=== PATIENT | female | born 1950 | race Caucasian/White ===

== ENCOUNTER 2020-01-21 07:37 | Outpatient (CLI) | payer MEDICARE, SELFPAY ==
--- NOTE | ~2020-01-21 | CT_ITS ---
EXAMINATION: CT lung screening DATE: 01/21/2020 08:53 INDICATION: Personal history of tobacco dependence, current smoker with 41 pack year history TECHNIQUE: Computed tomography (CT) of the chest was performed without intravenous contrast. The dose -length product (DLP) was 97.46 mGy-cm. 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 COMPARISON: 09/12/2018 FINDINGS: There are multiple stable scattered pulmonary nodules, the largest of which measures 7 mm i n the right upper lobe. No new pulmonary nodule is identified. There is mild emphysema. No pathologic ally enlarged thoracic lymph nodes are identified. The heart size is normal. There is no pleural effu dolores or pneumothorax. A calcified nodule of the right lower lobe is consistent with old granulomatous disease. There is calcified coronary artery atherosclerosis. Punctate calcifications in an otherwise normal spleen likely represent healed granulomatous disease. Severe thoracic spondylosis is noted. IMPRESSION: 1. Lung-RADS category 2: Benign appearance or behavior. Continue annual screening with noncontrast lo w-dose chest CT in 12 months. Reviewed, dictated and finalized at location A. IMPRESSION: 1. Lung-RADS category 2: Benign appearance or behavior. Continue annual screeni ng with noncontrast low-dose chest CT in 12 months.
== END 2020-01-21 07:38 | disposition home or self-care (01) ==
PROVIDERS: PCP Family Medicine; Visit Provider Physician Assistant
DX: Z12.2 Encounter for screening for malignant neoplasm of respiratory organs (principal); Z87.891 Personal history of nicotine dependence
CPT/HCPCS: G0297

== ENCOUNTER → 2020-11-17 11:44 | Outpatient (CLI) | payer MEDICARE, SELFPAY ==
--- NOTE | ~2020-11-17 | CT_ITS ---
EXAMINATION: CT lung screening DATE: 11/17/2020 12:13 INDICATION: Personal history of tobacco dependence, current smoker with 75 pack year history TECHNIQUE: Computed tomography (CT) of the chest was performed without intravenous contrast. The dose -length product (DLP) was 93.56 mGy-cm. 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 COMPARISON: 01/21/2020 FINDINGS: There is mild emphysema. Again seen are multiple stable scattered pulmonary nodules, the la rgest of which measures 7 mm in the right upper lobe. No new pulmonary nodule is identified. There is no pleural effusion or pneumothorax. The lungs are free of focal airspace opacities. No pathological ly enlarged thoracic lymph nodes are identified. The heart size is normal. Calcified coronary artery atherosclerosis is noted. There is severe thoracic spondylosis. IMPRESSION: 1. Lung-RADS category 2: Benign appearance or behavior. Continue annual screening with noncontrast lo w-dose chest CT in 12 months. Reviewed, dictated and finalized at location B. IMPRESSION: 1. Lung-RADS category 2: Benign appearance or behavior. Continue annual screeni ng with noncontrast low-dose chest CT in 12 months.
--- NOTE | ~2020-11-17 | MM_ITS ---
EXAMINATION: MM screening german BI w gale HISTORY: Screening TECHNIQUE: Craniocaudal and mediolateral oblique 3-D tomosynthesis images were obtained and synthetic 2-D images were generated. CAD analysis was submitted and interpreted. COMPARISON: No prior mammogram is available for comparison at this institution. BREAST PARENCHYMAL COMPOSITION: There are scattered areas of fibroglandular density. FINDINGS: There is a new focal asymmetry medial aspect of the left breast near the nipple on CC view. The right breast is stable without evidence for malignancy. IMPRESSION: 1. New focal left breast asymmetry medially and anteriorly near the nipple on CC view. 2. Additional mammographic views and possible breast ultrasound are recommended. BI-RADS Category 0: Incomplete: Needs additional imaging evaluation. Reviewed, dictated and finalized at location A. IMPRESSION: 1. New focal left breast asymmetry medially and anteriorly near the nipple on C C view. 2. Additional mammographic views and possible breast ultrasound are recommended . BI-RADS Category 0: Incomplete: Needs additional imaging evaluation.
== END ==
PROVIDERS: PCP Family Medicine; Visit Provider Nurse Practitioner Family
DX: Z12.31 Encounter for screening mammogram for malignant neoplasm of breast (principal); Z12.2 Encounter for screening for malignant neoplasm of respiratory organs; Z87.891 Personal history of nicotine dependence; R92.8 Other abnormal and inconclusive findings on diagnostic imaging of breast
CPT/HCPCS: 71271; 77063; 77067

== ENCOUNTER → 2020-12-19 08:46 | Outpatient (CLI) | payer MEDICARE, SELFPAY ==
--- NOTE | ~2020-12-19 | MMUS_ITS ---
EXAMINATION: MM diagnostic german LT w gale, US breast LT limited HISTORY: Follow-up left breast asymmetry TECHNIQUE: Additional 3-D tomosynthesis images of the left breast were performed and synthetic 2-D im ages were generated. CAD analysis was submitted and interpreted. High resolution left breast ultrasou nd was performed. COMPARISON: Comparison to multiple prior studies sequentially, with oldest reviewed study dated 05/05. BREAST PARENCHYMAL COMPOSITION: Breast composed of scattered areas of fibroglandular density. FINDINGS: MAMMOGRAPHIC FINDINGS: The areas of asymmetry in the periareolar location of the left breast are less apparent with spot com pression views. No discrete mass, architectural distortion or suspicious calcifications are identifie d. ULTRASOUND: Limited left breast ultrasound: Normal heterogeneous echotexture without focal solid or cystic mass. IMPRESSION: 1. No evidence for malignancy in the left breast. 2. Routine yearly screening mammogram and regular clinical breast examination are recommended. BI-RADS Category 1: Negative Reviewed, dictated and finalized at location A. IMPRESSION: 1. No evidence for malignancy in the left breast. 2. Routine yearly screening mammogram and regular clinical breast examination a re recommended. BI-RADS Category 1: Negative
== END ==
PROVIDERS: PCP Family Medicine; Visit Provider Physician Assistant
DX: R92.8 Other abnormal and inconclusive findings on diagnostic imaging of breast (principal)
CPT/HCPCS: 76642; 77061; 77065; G0279

== ENCOUNTER 2023-03-19 11:10 | Outpatient (CLI) | payer MEDICARE, SELFPAY ==
--- NOTE | ~2023-03-19 | CT_ITS ---
EXAMINATION: CT lung screening DATE: 03/19/2023 11:34 INDICATION: Personal history nicotine dependence, prior smoker with 40 pack year history TECHNIQUE: Computed tomography (CT) of the chest was performed without intravenous contrast. The dose -length product (DLP) was 100.75 mGy-cm. 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 COMPARISON: 11/17/2020 FINDINGS: There is mild emphysema. Multiple stable scattered pulmonary nodules are again seen which m easure up to 7 mm in the right upper lobe. No new pulmonary nodule is identified. The lungs are free of acute airspace opacities. No pleural effusion or pneumothorax. No pathologically enlarged thoracic lymph nodes are identified. The heart size is normal. Calcified coronary artery atherosclerosis is n oted. There is severe thoracic spondylosis. IMPRESSION: 1. Lung-RADS category 2: Benign appearance or behavior. Continue annual screening with noncontrast lo w-dose chest CT in 12 months. Reviewed, dictated and finalized at location L. IMPRESSION: 1. Lung-RADS category 2: Benign appearance or behavior. Continue annual screeni ng with noncontrast low-dose chest CT in 12 months.
== END 2023-03-19 11:11 | disposition home or self-care (01) ==
PROVIDERS: PCP Family Medicine; Visit Provider Physician Assistant
DX: Z12.2 Encounter for screening for malignant neoplasm of respiratory organs (principal); Z87.891 Personal history of nicotine dependence
CPT/HCPCS: 71271

== ENCOUNTER 2023-10-14 16:50 | Emergency (ER) | payer MEDICARE, SELFPAY ==
[2023-10-14 17:06] VITALS: BP 130/84; PULSE 86; RESP 14; TEMP 36.9; O2SAT 97
--- NOTE | 2023-10-14 17:56 | ED.GENADULT ---
HPI - General Adult General Chief complaint: Extremity Problem,Nontraumatic Stated complaint: Right Elbow Swollen Time Seen by Provider: 10/14/23 17:56 Source: patient, RN notes reviewed and old records reviewed Mode of arrival: ambulatory Limitations: no limitations History of Present Illness HPI narrative: 73-year-old female presents to the [facility] with complaints of posterior right elbow swelling that started 4-5 days ago. Has a history of arthritis. Has taken Has full range of motion, no erythema, ecchymosis, no increased warmth. Onset (ago): day(s) (4-5) Treatments prior to arrival: other (Tylenol) Related Data Home Medications Medication Instructions Recorded Confirmed metoprolol succinate 25 mg 25 mg PO DAILY 01/08/20 10/14/23 tablet,extended release 24 hr Allergies Allergy/AdvReac Type Severity Reaction Status Date / Time No Known Allergies Allergy Verified 10/14/23 17:33 Review of Systems Review of Systems: All systems reviewed & are unremarkable except as noted in HPI and below Constitutional: Constitutional: Reports no additional constitutional complaints Eyes: Eyes: Reports no additional eye complaints ENT: Reports system reviewed and no additional complaints, except as documented Cardiovascular: Cardiovascular: Reports no additional cardiovascular complaints, Denies chest pain and Denies dyspnea Respiratory: Respiratory: Reports no additional respiratory complaints, Denies chest congestion, Denies cough and Denies dyspnea Gastrointestinal: Gastrointestinal: Reports no additional gastrointestinal complaints, Denies abdominal pain, Denies nausea and Denies vomiting Musculoskeletal: Musculoskeletal: Reports as per HPI, Reports arthralgias (Right elbow) and Reports joint swelling (Right) Integumentary/Breasts: Skin/Breast: Reports system reviewed and no additional complaints, except as docu Neurologic: Reports system reviewed and no additional complaints, except as documented Psychiatric: Psychiatric: Reports no additional psychiatric complaints Allergic/Immunologic: Allergic/Immunologic: Reports no additional allergic/immunologic complaints PMFSH Past Medical History Medical History Acquired hypothyroidism Chronic GERD Chronic obstructive pulmonary disease Depression Essential hypertension Hyperlipemia OAB (overactive bladder) Smoking history Family History Family History Father Hypertension Family history of cardiovascular disease Mother Family history of Alzheimer's disease Sibling Family history of malignant neoplasm of esophagus Social History Social History Smoking status: Never smoker Tobacco type: cigarettes Alcohol intake: never Alcohol use details: social Substance use: never Substance use type: does not use Living arrangements: with family Occupation/Education: retired Gender identity (if verbalized by the patient): Female Comments At the time of my signature, I reviewed and agree with the nursing past medical, surgical, social, and family history. There is no relevant family history pertinent to the patient complaint. Exam Const: General: cooperative, healthy appearing, comfortable, no acute distress, well developed, alert and well nourished Nutritional Appearance: well nourished Orientation/consciousness: patient oriented x3 Limitations: no limitations HENMT: Head: normal to inspection Ears: hearing grossly normal bilaterally and external ears normal Face/Nose/Sinus: Normal external nose present, Normal nares present, Normal nasal mucous membranes and turbinates present, normal facial exam and face symmetric Face and sinus: normal facial exam and face symmetric Eyes: General: appearance normal, both eyes and all related structures Alignment and Position: alignment normal Periorbital: periorbital findings normal Pupils: Equ
== END 2023-10-14 18:09 | disposition home or self-care (01) ==
PROVIDERS: Emergency Provider Nurse Practitioner; PCP Family Medicine
DX: M70.21 Olecranon bursitis, right elbow (principal); E03.9 Hypothyroidism, unspecified; K21.9 Gastro-esophageal reflux disease without esophagitis; J44.9 Chronic obstructive pulmonary disease, unspecified; I10 Essential (primary) hypertension; E78.5 Hyperlipidemia, unspecified
CPT/HCPCS: 99213; G0463

== ENCOUNTER 2024-05-13 13:55 | Outpatient (CLI) | payer MEDICARE, SELFPAY ==
--- NOTE | ~2024-05-13 | CT_ITS ---
CT Scan of the Chest without Contrast: Clinical Indication: Lung cancer screening, nicotine dependence Technique: Contiguous sections were acquired throughout the chest without intravenous contrast. Dose reduction technique was used on this scan by utilizing automated exposure control and iterative recon struction technique. The dose-length product (DLP) was 113.33 mGy-cm. COMPARISON: 03/19/2023 Findings: There is no evidence of any significant mediastinal, hilar or axillary lymphadenopathy. Mild to moder ate coronary artery calcifications are present. Calcified right hilar lymph nodes are present. There is no evidence of pleural or pericardial effusion. Stable pleural-based nodules at the right upper lobe. Stable 5 mm right middle lobe pulmonary nodule (axial image 62). Stable calcified right lower lobe granuloma. Stable 3 mm left apical pulmonary nodu le. Stable 3 mm nodule at the inferior lingula. Stable 3 mm left lower lobe pulmonary nodule (axial i mage 70). Images through the upper abdomen reveal no abnormalities. Stable T9 compression deformity with S-shap ed scoliosis of the thoracolumbar spine. Impression: Lung RADS 2: Benign appearance. 12 month follow-up screening CT advised. Reviewed, dictated and finalized at location M. Impression: Lung RADS 2: Benign appearance. 12 month follow-up screening CT advised.
== END 2024-05-13 13:56 | disposition home or self-care (01) ==
LOC: ANHIMG 13:56
PROVIDERS: PCP Family Medicine; Visit Provider Physician Assistant Medical
DX: Z12.2 Encounter for screening for malignant neoplasm of respiratory organs (principal); Z87.891 Personal history of nicotine dependence
CPT/HCPCS: 71271

== ENCOUNTER 2024-11-13 09:32 | Outpatient (CLI) | payer MEDICARE, SELFPAY ==
--- NOTE | ~2024-11-13 | DEXA_ITS ---
Bone Density Report Name: JEANNIE BALDERAS Age: 74 Sex: Female Ethnicity: White Date of : 1950 Indication: postmenopausal; screening for osteoporosis; height loss; hysterectomy; Referring Provider: RAND THOMAS Study: Bone densitometry was performed. Exam Date: November 13, 2024 Accession number: [id number] Bone Density: Region BMD T-score Z-score Classification AP Spine(L1, L2, L3) 0.866 -1.4 1.0 Osteopenia Femoral Neck (Left) 0.578 -2.4 -0.3 Osteopenia Total Hip (Left) 0.759 -1.5 0.3 Osteopenia Femoral Neck (Right) 0.593 -2.3 -0.2 Osteopenia Total Hip (Right) 0.800 -1.2 0.6 Osteopenia Total Hip Mean 0.780 -1.4 0.5 Osteopenia World Health Organization criteria for BMD impression classify patients as: Normal (T-score at or above -1.0), Osteopenia (T-score between -1.0 and -2.5), or Osteoporosis (T-score at or below -2.5). 10-year Fracture Risk(1): Major Osteoporotic Fracture 17% Hip Fracture 7.6% Reported Risk Factors: [place] (), Neck BMD=0.578, BMI=25.9, smoking (1) FRAX(R) Version 3.08. Fracture probability calculated for an untreated patient. Fracture probability may be lower if the patient has received treatment. Previous Exams: Region Exam Age BMD T-score BMD Change BMD Change Date g/cm2 vs Baseline vs Previous Total Hip(Left) 11/13/2024 74 0.759 -1.5 -0.199 (-20.8% -0.199 (-20.8% 09/24/2014 64 0.959 0.1 Total Hip(Right) 11/13/2024 74 0.800 -1.2 -0.125 (-13.5% -0.125 (-13.5% 09/24/2014 64 0.926 -0.1 *Denotes significance at 95% confidence level, LSC for Total Hip = 0.027 g/cm2 Clinical Information Provided by Patient: Smokes Has used the following medications: Vitamin D, Calcium Has the following medical conditions: Hysterectomy Patient maximum height was 69 Menopause Age: 44 No regular weight bearing exercise Drinks caffeinated beverages Onset of menses at age 8 Number of children 3 Impression: The patient has low bone mass, based on the Left Femoral Neck T-score. The patient has an estimated ten-year risk of hip fracture of 7.6% and an estimated ten-year risk of major fracture of 17%, based on the WHO FRAX algorithm. The patient has risk factors, including: smoking. The BMD for the Total Hip(Left) decreased, changing by -20.8% since the last DXA exam. The BMD for the Total Hip(Right) decreased, changing by -13.5% since the last DXA exam. Discussion: BONE DENSITY IS LOW AT ONE OR MORE SKELETAL SITES. THE PATIENT'S BMD AND CLINICAL RISK FACTORS CONTRIBUTE TO THIS PATIENT'S INCREASED RISK OF FRACTURE. This patient's lowest T-score is low at one or more skeletal sites. It meets the World Health Organization's (WHO) criteria for ?low bone mass? (T-score between -1.0 and -2.5). The patient's 10-year risk of hip fracture as calculated by FRAX exceeds the threshold where pharmacological therapy is recommended by the National Osteoporosis Foundation (NOF). However, all treatment decisions require clinical judgment and consideration of individual patient factors, including patient preferences, comorbidities, previous drug use, risk factors not captured in the FRAX model (e.g., frailty, falls, vitamin D deficiency, increased bone turnover, interval significant decline in bone density) and possible under or overestimation of fracture risk by FRAX. The patient should follow a healthful lifestyle (good nutrition with adequate calcium and vitamin D, and appropriate weight-bearing exercise). Follow-Up: Consider a repeat BMD and Vertebral Fracture Assessment (VFA) exam in 2 years or sooner if medically necessary, to reassess this patient's status. Reported by: VICK on 11/13/2024 10:08:00 AM. Reviewed, dictated and finalized at location [facility]
--- OUTSIDE RECORDS SUMMARY | 2024-11-13 09:54 | XMS_ITS | Encounter Summary ---
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 Name Role Phone Dominick Maldonado MD Primary Care Provide r Dominick Maldonado MD Primary Care Provide r Dominick Maldonado MD Primary Care Provide r Mauricio Robison MD Primary Care Provider Encounter Details Date Type Department Care Team (Latest Contact Info) Description 09/05/2015 Orders Only [facility] ProviderPhoebe MD [address] [place] [id number] Social History Tobacco Use Types Packs/Day Years Used Date Smoking Tobacco: Never Assessed Comments Unknown Sex and Gender Information Value Date Recorded Sex Assigned at Not on file Legal Sex Female 4:19 AM [employer] Gender Identity Not on file Sexual Orientation Not on file documented as of this encounter Plan of Treatment Not on file documented as of this encounter Procedures Procedure Name Priority Date/Time Associated Diagnosis Comments CARDIOLOGY REPORT 09/05/2016 12: 00 AM [employer] documented in this encounter Results * CARDIOLOGY REPORT (09/05/2016 12:00 AM [employer]BER) Anatomical Region Laterality Modality Other Narrative 09/05/2016 12:00 AM [employer]BER Ordered by an unspecified provider. Historical Provider [facility] ROGERIO LOPEZ Final Result documented in this encounter Visit Diagnoses Not on filedocumented in this encounter Care Teams Television Picture Tube Rebuilder Relationship Specialty Start Date End Date Dominick Maldonado MD [address] [place] [address] PCP - General 11/02/16 05/12/19 Dominick Maldonado MD [address] [place] [address] PCP - General 09/05/16 11/01/16 Dominick Maldonado MD [address] [place] [address] PCP - General 08/29/16 09/04/16 Mauricio Robison MD [address] [place] [address] PCP - General Family Medicine 05/13/19 documented as of this encounter
--- OUTSIDE RECORDS SUMMARY | 2024-11-13 09:54 | XMS_ITS | Referral Summary ---
Author Organization [facility] [place] [address] [facility] [address] Address [address] [place] [address] Care Team Providers Care Dry Can Tender Name Role Phone Mauricio Robison MD Primary Care Provider Encounters Date Type Department Care Team Description 10/25/2024 Results Follow-Up [facility] Cardiology [address] [facility] [address] [place] [address] Juve Jeffrey MD 10/12/2024 11:15 AM CDT Ancillary Procedure [facility] Cardiology [address] [place] [address] Essential hypertension; LVH (left ventricular hypertrophy); Diastolic dysfunction from Last 3 Months Allergies No known active allergies Medications lisinopril (PRINIVIL,ZESTR IL) 20 mg tablet take 1 tablet by oral route every day 0 0 7 Active oxybutynin (DITROPAN) 5 mg tablet take 1 tablet by oral route 2 times every day 0 0 7 Active naproxen (NAPROSYN,ALEVE ) 500 mg tablet take 1 tablet by oral route 2 times every day with food 0 0 7 Active zolpidem (AMBIEN) 5 mg tablet take 1 Tablet by oral route every day at bedtime as needed 0 0 7 Active omeprazole (PriLOSEC) 20 mg capsule take 1 capsule by oral route every day before a meal 0 0 7 Active levothyroxine sodium (TIROSINT) 100 mcg capsule take 1 capsule by oral route every day 0 0 7 Active hydroCHLOROthia zide (HYDRODIURIL) 25 mg tablet take 1 tablet by oral route every day 0 0 7 Active FLUoxetine (PROzac) 20 mg tablet Take 20 mg by mouth daily Active timolol (BETIMOL) 0.25 % ophthalmic solution Administer 1-2 drops into both eyes daily Active buPROPion SR (ZYBAN) 150 mg 12 hr tablet Take 1 tablet (150 mg total) by mouth 2 (two) times a day 60 tablet 11 9 Active atorvastatin (LIPITOR) 40 mg tablet Take 1 tablet (40 mg total) by mouth nightly Active Breo Ellipta 200-25 mcg/dose diskus inhaler 1 puff daily 4 Active metoprolol XL (TOPROL-XL) 50 mg extended release tablet Take 1 tablet (50 mg total) by mouth daily 90 tablet 6 4 Active Active Problems No known active problems Social History Tobacco Use Types Packs/Day Years Used Date Smoking Tobacco: Former Cigarettes Q uit: 05/05/2020 Smokeless Tobacco: Never Alcohol Use Standard Drinks/Week Comments Yes 0 (1 standard drink = 0.6 oz pur e alcohol) Comments Unknown Sex and Gender Information Value Date Recorded Sex Assigned at Not on file Legal Sex Female 4:19 AM DIGITAL ENGINEER Gender Identity Not on file Sexual Orientation Not on file Last Filed Vital Signs Vital Sign Reading Time Taken Comments Blood Pressure 128/80 07/22/2024 1:19 PM DIGITAL ENGINEER Pulse 82 07/22/2024 1:19 PM DIGITAL ENGINEER Temperature - - Respiratory Rate - - Oxygen Saturation 95% 07/22/2024 1:19 PM DIGITAL ENGINEER Inhaled Oxygen Concentration - - Weight 69.2 kg (152 lb 9.6 oz) 07/22/2024 1:19 P M DIGITAL ENGINEER Height 167.6 cm (5' 6 ) 07/22/2024 1:19 PM DIGITAL ENGINEER Body Mass Index 24.63 07/22/2024 1:19 PM DIGITAL ENGINEER Plan of Treatment Not on file Procedures Procedure Name Priority Date/Time Associated Diagnosis Comments TRANSTHORACIC ECHO (TTE) COMPLETE W DOPPLER/CF WO CONTRAST Routine 10/12/2024 12:00 PM CDT Essential hypertension LVH (left ventricular hypertrophy) Diastolic dysfunction from Last 3 Months Results * TRANSTHORACIC ECHO (TTE) COMPLETE W DOPPLER/CF WO CONTRAST (10/12/2024 12:00 PM CDT) Anatomical Region Laterality Modality Ultrasound 10/12/2024 11:2 5 AM CDT Narrative 10/12/2024 2:[address] [facility] Cardiology [address] [facility] [address], [place] [address] [address] [facility] [address], [place] [address] P:[phone] P:[phone] Echocardiographic Report Patient Name: Lluvia BALDERAS : 1950 Study Date: 10/12/2024 11:25:41 AM Gender: F Tech: Location: [facility] Ref Provider: JUVE JEFFREY Height(Cm): 168 BSA: 1.79 Weight(Kg): 68.9 Heart Rate: 62 BP: 128 / 80 Quality: Good Order Provider: JUVE JEFFREY PROCEDURES: Echocardiographic Report: Transthoracic echocardiogram with complete 2D, M-Mode, and color Doppler examination. With Strain Analysis. INDICATIONS: Diastolic Dysfunction, Left Ventricular Hypertrophy, and I10 Essential (primary) hypertension. MEASUREMENTS: 2D/MM Value Range Doppler Value Range EF Mod BP 79 % [ 54 - 74 ] VIGNESH Vmax 3.05 cm2 [ 2.00 - 4.00 ] EF Teich MM 75 % [ 54 - 74 ] AV Mean PG 7 mmHg LVIDd 2D 3.88 cm [ 3.80 - 5.20 ] AV Peak Suleman 1.64 m/s [ 1.00 - 1.70 ] LVIDd MM 3.68 cm [ 3.80 - 5.20 ] AV Peak PG 11 mmHg LVIDs 2D 2.38 cm [ 2.20 - 3.50 ] AV VTI 35.31 cm LVIDs MM 2.08 cm [ 2.20 - 3.50 ] LVOT Diam 2.03 cm [ 1.70 - 2.10 ] LVPWd 2D 0.93 cm [ 0.60 - 0.90 ] LVOT Peak Suleman 1.54 m/s [ 0.70 - 1.10 ] LVPWd MM 0.89 cm [ 0.60 - 0.90 ] LVOT VTI 30.75 cm IVSd 2D 0.89 cm [ 0.60 - 0.90 ] MV E Peak Suleman 0.67 m/s [ 0.60 - 1.30 ] IVSd MM 1.07 cm [ 0.60 - 0.90 ] MV A Peak Suleman 0.87 m/s [ 1.00 - 1.20 ] LA Dimension MM 3.80 cm [ 2.70 - 3.80 ] MV Decel Time 377 msec [ 104 - 258 ] AoR Diam MM 3.36 cm [ 2.70 - 3.70 ] PV Peak Suleman 0.83 m/s [ 0.40 - 0.80 ] LA Volume Index 20 cc/m2 [ 16 - 34 ] TR Peak Suleman 2.65 m/s [ 1.00 - 2.80 ] ACS MM 0.00 cm TR Peak PG 28 mmHg Lateral E` 0.07 m/s [ 0.10 - 0.15 ] E` 0.07 m/s E/E` 10 2D/MM Value Range Doppler Value Range - FINDINGS: Interpretation Site: Exam was interpreted at [facility]. Left Ventricle: Normal left ventricular size. Mild concentric left ventricular hypertrophy. Resting outflow tract gradient with Valsalva of 26 mmHg. Hyperdynamic left ventricular function. No focal wall motion abnormalities. Impaired diastolic relaxation Grade I. Ejection fraction is measured at 79 %. Global Longitudinal Strain is -16 %. GLS is borderline. Right Ventricle: Normal right ventricular size. Normal right ventricular systolic function. Left Atrium: There is mild enlargement of left atrium. Right Atrium: The right atrium is normal in size. Atrial Septum: Normal atrial septum. Mitral Valve: Mild mitral annular calcification. Mild mitral valve regurgitation. There is no hemodynamically significant mitral stenosis by Doppler. Chordal SHERRELL seen. Aortic Valve: No evidence of hemodynamically significant aortic stenosis by Doppler. Aortic cusps appear mildly sclerotic. Trileaflet aortic valve. Trace aortic valve regurgitation. Tricuspid Valve: Normal appearance of the tricuspid valve. Mild pulmonary hypertension based on right ventricular systolic pressure. Estimated peak RVSP is 36 mmHg. Mild tricuspid regurgitation. Pulmonic Valve: Normal appearance of the pulmonic valve. No pulmonic stenosis. Trivial regurgitation in the pulmonic valve. Pericardium: Trivial pericardial effusion. Aorta: Normal aortic root. IVC: Normal size and normal respiratory collapse consistent with normal right atrial pressure (<5 mmHg). CONCLUSIONS: Normal left ventricular size. Mild concentric left ventricular hypertrophy. Resting outflow tract gradient with Valsalva of 26 mmHg. Hyperdynamic left ventricular function. No focal wall motion abnormalities. Impaired diastolic relaxation Grade I. Ejection fraction is measured at 79 %. Global Longitudinal Strain is -16 %. GLS is borderline. There is mild enlargement of left atrium. Mild mitral annular calcification. Mild mitral valve regurgitation. Chordal SHERRELL seen. Mild pulmonary hypertension based on right ventricular systolic pressure. Estimated peak RVSP is 36 mmHg. Mild tricuspid regurgitation. Normal sinus rhythm. Electronically Signed By: Jose Rouse MD 10/12/2024 2:11:50 PM CDT Procedure Note Jose Rouse MD - 10/12/2024 [facility] Cardiology [address] [facility] [address] [address] [address] [facility] [address], [address] [address] P:[phone] P:[phone] Echocardiographic Report Patient Name: Lluvia BALDERAS : 1950 Study Date: 10/12/2024 11:25:41 AM Gender: F Tech: Location: EDW Ref Provider: JUVE JEFFREY Height(Cm): 168 BSA: 1.79 Weight(Kg): 68.9 Heart Rate: 62 BP: 128 / 80 Quality: Good Order Provider: JUVE JEFFREY PROCEDURES: Echocardiographic Report: Transthoracic echocardiogram with complete 2D, M-Mode, and color Dopplerexamination. With Strain Analysis. INDICATIONS: Diastolic Dysfunction, Left Ventricular Hypertrophy, and I10 Essential(primary) hypertension. MEASUREMENTS: 2D/MM Value Range Doppler ValueRange EF Mod BP 79 % [ 54 - 74 ] VIGNESH Vmax 3.05cm2 [ 2.00 - 4.00 ] EF Teich MM 75 % [ 54 - 74 ] AV Mean PG 7mmHg LVIDd 2D 3.88 cm [ 3.80 - 5.20 ] AV Peak Suleman 1.64m/s [ 1.00 - 1.70 ] LVIDd MM 3.68 cm [ 3.80 - 5.20 ] AV Peak PG 11mmHg LVIDs 2D 2.38 cm [ 2.20 - 3.50 ] AV VTI 35.31cm LVIDs MM 2.08 cm [ 2.20 - 3.50 ] LVOT Diam 2.03 cm[ 1.70 - 2.10 ] LVPWd 2D 0.93 cm [ 0.60 - 0.90 ] LVOT Peak Suleman 1.54m/s [ 0.70 - 1.10 ] LVPWd MM 0.89 cm [ 0.60 - 0.90 ] LVOT VTI 30.75cm IVSd 2D 0.89 cm [ 0.60 - 0.90 ] MV E Peak Suleman 0.67m/s [ 0.60 - 1.30 ] IVSd MM 1.07 cm [ 0.60 - 0.90 ] MV A Peak Suleman 0.87m/s [ 1.00 - 1.20 ] LA Dimension MM 3.80 cm [ 2.70 - 3.80 ] MV Decel Time 377msec [ 104 - 258 ] AoR Diam MM 3.36 cm [ 2.70 - 3.70 ] PV Peak Suleman 0.83m/s [ 0.40 - 0.80 ] LA Volume Index 20 cc/m2 [ 16 - 34 ] TR Peak Suleman 2.65m/s [ 1.00 - 2.80 ] ACS MM 0.00 cm TR Peak PG 28mmHg Lateral E` 0.07 m/s [ 0.10 - 0.15 ] E` 0.07 m/s E/E` 10 2D/MM Value Range Doppler ValueRange - FINDINGS: Interpretation Site: Exam was interpreted at [facility]. Left Ventricle: Normal left ventricular size. Mild concentric left ventricularhypertrophy. Resting outflow tract gradient with Valsalva of 26 mmHg. Hyperdynamic leftventricular function. No focal wall motion abnormalities. Impaired diastolic relaxation Grade I.Ejection fraction is measured at 79 %. Global Longitudinal Strain is -16 %. GLS isborderline. Right Ventricle: Normal right ventricular size. Normal right ventricular systolicfunction. Left Atrium: There is mild enlargement of left atrium. Right Atrium: The right atrium is normal in size. Atrial Septum: Normal atrial septum. Mitral Valve: Mild mitral annular calcification. Mild mitral valve regurgitation. Thereis no hemodynamically significant mitral stenosis by Doppler. Chordal SAMseen. Aortic Valve: No evidence of hemodynamically significant aortic stenosis by Doppler.Aortic cusps appear mildly sclerotic. Trileaflet aortic valve. Trace aortic valveregurgitation. Tricuspid Valve: Normal appearance of the tricuspid valve. Mild pulmonary hypertensionbased on right ventricular systolic pressure. Estimated peak RVSP is 36 mmHg. Mildtricuspid regurgitation. Pulmonic Valve: Normal appearance of the pulmonic valve. No pulmonic stenosis. Trivialregurgitation in the pulmonic valve. Pericardium: Trivial pericardial effusion. Aorta: Normal aortic root. IVC: Normal size and normal respiratory collapse consistent with normal rightatrial pressure (<5 mmHg). CONCLUSIONS: Normal left ventricular size. Mild concentric left ventricularhypertrophy. Resting outflow tract gradient with Valsalva of 26 mmHg. Hyperdynamic leftventricular function. No focal wall motion abnormalities. Impaired diastolic relaxation Grade I.Ejection fraction is measured at 79 %. Global Longitudinal Strain is -16 %. GLS isborderline. There is mild enlargement of left atrium. Mild mitral annular calcification. Mild mitral valve regurgitation.Chordal SHERRELL seen. Mild pulmonary hypertension based on right ventricular systolic pressure.Estimated peak RVSP is 36 mmHg. Mild tricuspid regurgitation. Normal sinus rhythm. Electronically Signed By: Jose Rouse MD 10/12/2024 2:11:50 PM CDT Juve Jeffrey MD CV ECHO PROCEDURES Final Result from Last 3 Months Insurance MEDICARE [facility] UHC MEDICARE ADVANTAGE [facility] MED[facility] Address: [address] [address] [place] [address] Care Teams Dry Can Tender Relationship Specialty Start Date End Date Mauricio Robison MD [address] [facility] [address] [place] [address] PCP - General Family Medicine 05/13/19
--- OUTSIDE RECORDS SUMMARY | 2024-11-13 09:54 | XMS_ITS | Encounter Summary ---
Author Organization [facility] Healthcare Address [address] [place] [address] Care Team Providers Care Chief Engineering Division Name Role Phone Mauricio Robison MD Primary Care Provider Encounter Details Date Type Department Care Team (Late st Contact Info) Description 10/25/2024 Results Follow-Up 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
--- OUTSIDE RECORDS SUMMARY | 2024-11-13 09:54 | XMS_ITS | Encounter Summary ---
Author Organization [facility] Address [address] [facility] [address] [place] [address] Care Team Providers Care Mannequin Mold Maker Name Role Phone Dominick Maldonado MD Primary Care Provide r Dominick Maldonado MD Primary Care Provide r Mauricio Robison MD Primary Care Provider Encounter Details Date Type Department Care Team (Late st Contact Info) Description 09/05/2016 Orders Only [facility] ProviderPhoebe MD [address] [place] [address] Social History Tobacco Use Types Packs/Day Years Used Date Smoking Tobacco: Never Assessed Comments Unknown Sex and Gender Information Value Date Recorded Sex Assigned at Not on file Legal Sex Female 4:19 AM BAR HOSTESS Gender Identity Not on file Sexual Orientation Not on file documented as of this encounter Plan of Treatment Not on file documented as of this encounter Procedures Procedure Name Priority Date/Time Associated Diagnosis Comments CARDIOLOGY REPORT 09/06/2016 12: 00 AM BAR HOSTESS CARDIOLOGY REPORT 09/05/2016 CARDIOLOGY REPORT 09/05/2016 documented in this encounter Results * CARDIOLOGY REPORT (09/06/2016 12:00 AM BAR HOSTESS) Anatomical Region Laterality Modality Other Narrative 09/06/2016 12:00 AM BAR HOSTESS Ordered by an unspecified provider. Historical Provider [facility] PROCE DURES Final Result * CARDIOLOGY REPORT (09/05/2016) Anatomical Region Laterality Modality Other Narrative 09/05/2016 Ordered by an unspecified provider. us Historical Provider [facility] CARDIAC SERVICES PROCE DURES Final Result * CARDIOLOGY REPORT (09/05/2016) Anatomical Region Laterality Modality Other Narrative 09/05/2016 Ordered by an unspecified provider. us Historical Provider [facility] C[facility] SERVICES PROCE DURES Final Result documented in this encounter Visit Diagnoses Not on filedocumented in this encounter Care Teams Mannequin Mold Maker Relationship Specialty Start Date End Date Dominick Maldonado MD [address] [place] [address] PCP - General 11/02/16 05/12/19 Dominick Maldonado MD [address] [place] [address] PCP - General 09/05/16 11/01/16 Mauricio Robison MD [address] [place] [address] PCP - General Family Medicine 05/13/19 documented as of this encounter
--- OUTSIDE RECORDS SUMMARY | 2024-11-13 09:54 | XMS_ITS | Encounter Summary ---
Author Organization [facility] Address [address] [facility] [address] [place] [address] Care Team Providers Care Mobile Application Developer Name Role Phone Dominick Maldonado MD Primary Care Provide r Dominick Maldonado MD Primary Care Provide r Dominick Maldonado MD Primary Care Provide r Mauricio Robison MD Primary Care Provider Encounter Details Date Type Department Care Team (Late st Contact Info) Description 08/27/2016 Orders Only [facility] ProviderPhoebe MD [address] [place] [address] Social History Tobacco Use Types Packs/Day Years Used Date Smoking Tobacco: Never Assessed Comments Unknown Sex and Gender Information Value Date Recorded Sex Assigned at Not on file Legal Sex Female 4:19 AM FOREPART ROUNDER Gender Identity Not on file Sexual Orientation Not on file documented as of this encounter Plan of Treatment Not on file documented as of this encounter Procedures Procedure Name Priority Date/Time Associated Diagnosis Comments CARDIOLOGY REPORT 08/27/2016 documented in this encounter Results * CARDIOLOGY REPORT (08/27/2016) Anatomical Region Laterality Modality Other Narrative 08/27/2016 Ordered by an unspecified provider. Historical Provider [facility] ROGERIO LOPEZ Final Result documented in this encounter Visit Diagnoses Not on filedocumented in this encounter Care Teams Mobile Application Developer Relationship Specialty Start Date End Date Dominick Maldonado MD [address] [place] [address] PCP - General 11/02/16 05/12/19 Dominick Maldonado MD [address] [place] [address] PCP - General 09/05/16 11/01/16 Dominick Maldonado MD [address] [place] [address] PCP - General 08/29/16 09/04/16 Mauricio Robison MD [address] [place] [address] PCP - General Family Medicine 05/13/19 documented as of this encounter
--- OUTSIDE RECORDS SUMMARY | 2024-11-13 09:54 | XMS_ITS | Clinical Summary ---
Author Organization [facility] [place] [address] Address [address] [place] [address] Care Team Providers Care Jet Dyeing Machine Tender Name Role Phone Mauricio Robison MD Primary Care Provider Allergies No known active allergies Medications lisinopril [...] Active Active Problems No known active problems Encounters Date Type Department Care Team Description 10/25/2024 Results Follow-Up [facility] Cardiology [address] [facility] [address] [place] [phone] Juve Jeffrey MD 10/12/2024 11:15 AM CDT Ancillary Procedure [facility] Cardiology [address] [place] [address] Essential hypertension; LVH (left ventricular hypertrophy); Diastolic dysfunction from Last 3 Months Medical History Medical History Date Comments Hx Other Medical dyslipidemia, h ypertension, COPD, hypothyroidism Hx Other Medical hysterectomy, t onsillectomy, cholecystectomy, back Family History Medical History Relation Name Comments Esophageal cancer Brother 2 Cancer, es ophageal; Cause of : Cancer, esophageal Hypertension Brother 3 Hypertension; Stroke Brother 4 Stroke; Other Father open heart surg сергей; Other Mother Unknown; Cause of : Unknown Stroke Other Family history of Stroke; Relation Name Status Comments Brother 1 (Age 73) Brother 2 Brother 3 Brother 4 Father Mother (Age 88) Other Social History Tobacco Use Types Packs/Day Years Used Date Smoking Tobacco: Former Cigarettes Q uit: 05/05/2020 Smokeless Tobacco: Never Alcohol Use Standard Drinks/Week Comments Yes 0 (1 standard drink = 0.6 oz pur e alcohol) Comments Unknown Sex and Gender Information Value Date Recorded Sex Assigned at Not on file Legal Sex Female 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 Gender Identity Not on file Sexual Orientation Not on file Obstetrics History Last Filed Vital Signs Vital Sign Reading Time Taken Comments Blood Pressure 128/80 07/22/2024 1:19 PM OTR REFRIGERATED CDL TRUCK DRIVER Pulse 82 07/22/2024 1:19 PM OTR REFRIGERATED CDL TRUCK DRIVER Temperature - - Respiratory Rate - - Oxygen Saturation 95% 07/22/2024 1:19 PM OTR REFRIGERATED CDL TRUCK DRIVER Inhaled Oxygen Concentration - - Weight 69.2 kg (152 lb 9.6 oz) 07/22/2024 1:19 P M OTR REFRIGERATED CDL TRUCK DRIVER Height 167.6 cm (5' 6 ) 07/22/2024 1:19 PM OTR REFRIGERATED CDL TRUCK DRIVER Body Mass Index 24.63 07/22/2024 1:19 PM OTR REFRIGERATED CDL TRUCK DRIVER Plan of Treatment Health Maintenance Due Date Last Done Comments Colon Cancer Screening-Colonoscopy 1950 Depression Screening 1950 Fall Risk Assessment 1950 Hepatitis C Screening 1950 Osteoporosis Screening-Bone Density Scan 1950 DTaP/Tdap/Td Vaccine (1 - Tdap) 1960 Hepatitis B Screening 1967 Zoster Vaccine (1 of 2) 1999 Well Visit 65+ 2014 Pneumococcal vaccine 65+ (2 of 2 - PCV) 04/23/2019 0 04/23/2018 Influenza Vaccine (#1) 2024 04/23/2018 Procedures Procedure Name Priority Date/Time Associated Diagnosis Comments TRANSTHORACIC ECHO (TTE) COMPLETE W DOPPLER/CF WO CONTRAST Routine 10/12/2024 12:00 PM CDT Essential hypertension LVH (left ventricular hypertrophy) Diastolic dysfunction from Last 3 Months Results * TRANSTHORACIC ECHO (TTE) COMPLETE W DOPPLER/CF WO CONTRAST (10/12/2024 12:00 PM CDT) Anatomical Region Laterality Modality Ultrasound 10/12/2024 11:2 5 AM CDT Narrative 10/12/2024 2:12 PM CDT [facility] Cardiology [address] [facility] [address], [place] [address] [address] [facility] [address], [place] [address] P:[phone] P:[phone] Echocardiographic Report Patient Name: Lluvia BALDERAS : 1950 Study Date: 10/12/2024 11:25:41 AM Gender: F Tech: SW Location: EDW Ref Provider: JUVE JEFFREY Height(Cm): [...] FINDINGS: Interpretation Site: Exam was interpreted at [facility]. Left Ventricle: Normal left ventricular size. Mild [...] Procedure Note Jose Rouse MD - 10/12/2024 [facility] Cardiology [address], [place] [address] [address] [facility] [address], [place] [address] P:[phone] P:[phone] Echocardiographic Report Patient Name: Lluvia BALDERAS : [...] FINDINGS: Interpretation Site: Exam was interpreted at [facility]. Left Ventricle: Normal left ventricular size. Mild [...] Result from Last 3 Months Insurance MEDICARE [facility] MEDICARE [facility] Address: [address] [address] [place] [address] Care Teams Jet Dyeing Machine Tender Relationship Specialty Start Date End Date Mauricio Robison MD [address] [place] [address] PCP - General Family Medicine 05/13/19
== END 2024-11-13 09:33 | disposition home or self-care (01) ==
PROVIDERS: PCP Family Medicine; Visit Provider Physician Assistant Medical
DX: Z78.0 Asymptomatic menopausal state (principal); M85.88 Other specified disorders of bone density and structure, other site; M85.852 Other specified disorders of bone density and structure, left thigh; M85.851 Other specified disorders of bone density and structure, right thigh
CPT/HCPCS: 77080